=== PATIENT | female | born 1950 | race Caucasian/White ===

== ENCOUNTER 2016-06-17 08:21 | Day surgery (SDC) | payer MEDICARE ==
[2016-06-08 16:50] LABS: BASOPHILS 0.3 %; BASOPHILS ABSOLUTE 0.02 10/3/uL (0.0-0.16); EOSINOPHILS 0.7 %; EOSINOPHILS ABSOLUTE 0.04 10/3/uL (0.0-0.53); HEMATOCRIT 36.4 % (36.0-48.0); HEMOGLOBIN 12.5 g/dL (12.0-16.0); IMMATURE GRANULOCYTES 0.3 %; IMMATURE GRANULOCYTES ABSOLUTE 0.02 10/3/uL (0.0-0.11); LYMPHOCYTES 11.9 %; MANUAL DIFF NO %; MEAN CORPUS HGB CONC 34.3 g/dL (32.0-36.0); MEAN CORPUSCULAR HEMOGLOB 31.8 pg (26.0-34.0); MEAN CORPUSCULAR VOLUME 92.6 fL (80-100); MEAN PLATELET VOLUME 9.5 fL (9.2-13.0); MONOCYTES 13.6 %; NEUTROPHILS 73.2 %; NEUTROPHILS ABSOLUTE 4.32 10/3/uL (2.02-8.40); PLATELET COUNT 212 10/3/uL (150-400); RBC DISTRIBUTION WIDTH 13.6 % (12.0-16.0); RED CELL COUNT 3.93 10/6/uL (4.0-5.6); WHITE BLOOD CELLS 5.9 10/3/uL (4.5-10.5)
[2016-06-08 17:54] LABS: A/G RATIO 1.5 (0.7-1.9); ALBUMIN 3.8 G/DL (3.5-5.0); BUN (BLOOD UREA NITROGEN) 13 MG/DL (6-23); CALCIUM, SERUM 8.1 MG/DL (8.5-10.4); CHLORIDE, SERUM 99 MMOL/L (96-112); CO2 (CARBON DIOXIDE) 29 MMOL/L (24-34); GFR AFRICAN AMERICAN 60 ML/MIN (>=60); GFR NON AFRICAN AMERICAN 52 ML/MIN (>=60); GLOBULIN 2.6 G/DL (2.5-4.1); GLUCOSE, SERUM 102 MG/DL (60-99); POTASSIUM, SERUM 4.2 MMOL/L (3.5-5.3); SGOT(AST) 18 U/L (5-40); SGPT(ALT) 30 U/L (5-65); SODIUM, SERUM 137 MMOL/L (135-148); TOTAL BILIRUBIN 0.3 MG/DL (0-1.2); TOTAL PROTEIN 6.4 G/DL (6.0-8.5)
[2016-06-08 17:56] LABS: ALKALINE PHOSPHATASE 119 U/L (45-117)
--- NOTE | ~2016-06-17 | PREOPHP ---
PreOp History and Physical [address] [place]. [address] NAME: BRIAN ALEMAN : 46 STATUS : PRE [facility] [place] PAT#: [id number] AGE: 66 ADM/REG DATE : MR#: [id number] REPORT SERV DATE: 06/16/16 DICTATED BY: YULISSA PAINTING III DATE: 06/02/16 REPORT STATUS : Draft TRANSCRIBED BY: MODL DATE: 06/02/16 HISTORY OF PRESENT ILLNESS: This 66-year-old female comes to the operating room for subclavian vein Port-A-Cath removal. The patient has a history of stage IV follicular lymphoma. She is status post treatment and is considered to be in remission. She comes now for removal of Port-A-Cath at her request and her medical oncologist's request. PAST MEDICAL HISTORY: 1. History of stage IV follicular lymphoma, now in remission after chemotherapy. 2. Arthritis. 3. Depression. 4. Supraventricular tachycardia. 5. Hypercholesterolemia. 6. Migraine headaches. 7. Spinal disease. ALLERGIES: CEFTIN, BIAXIN, AND FELDENE. MEDICATIONS: Coreg; Synthroid; Nexium; Lexapro; Lipitor; and vitamins. SOCIAL HISTORY: The patient is . She lives in [place], [place]. She is not employed. She has no history of tobacco use. She has occasional history of alcohol use. FAMILY HISTORY: Positive for heart disease, stroke, leukemia, and prostate cancer. REVIEW OF SYSTEMS: The patient complains of reflux, indigestion, and fatigue. PHYSICAL EXAMINATION: OBJECTIVE PHYSICAL EXAM: GENERAL: This is a female, in no acute distress. She is alert and oriented x3. HEENT: Unremarkable. NEUROLOGIC: Cranial nerves 2 through 12 were normal. LUNGS: Clear. CARDIAC: Normal. ASSESSMENT: 1. A 66-year-old female with history of stage IV follicular lymphoma, in remission after chemotherapy, with need for removal of subclavian vein Port-A-Cath. 2. Arthritis. 3. Depression. 4. Supraventricular tachycardia. 5. Hypercholesterolemia. 6. Migraine headaches. PreOp History and Physical [address] [address] NAME: BRIAN ALEMAN : 46 STATUS : PRE [facility] [place] PAT#: [id number] AGE: 66 ADM/REG DATE : MR#: [id number] REPORT SERV DATE: 06/16/16 DICTATED BY: YULISSA PAINTING III DATE: 06/02/16 REPORT STATUS : Draft TRANSCRIBED BY: FAHEEM DATE: 06/02/16 PLAN: The patient comes to the operating room now for removal of her Port-A-Cath. This procedure, the risks, benefits, and alternatives, including not limited to the risk for bleeding, infection, air embolus, pericardial tamponade, dislodgement of the Port-A-Cath tubing requiring extraction, and unforeseen complications including deep venous thrombosis, pulmonary embolus, myocardial infarction, stroke, pneumonia, and , have been explained to the patient prior to surgery. All her questions have been answered. She understands the risks and agrees to the surgery as planned. WILEY/FAHEEM Yulissa Painting III, M.D. / [id number]
--- NOTE | ~2016-06-17 | OP ---
Record Of Operation [facility] [address] [place]. [address] NAME: BRIAN ALEMAN : 46 STATUS : [facility]#: [id number] AGE: 66 ADM/REG DATE : 06/17/16 MR#: [id number] REPORT SERV DATE: 06/18/16 DICTATED BY: YULISSA THORPE III DATE: 06/18/16 REPORT STATUS : Draft TRANSCRIBED BY: MODL DATE: 06/18/16 DATE OF PROCEDURE: 06/17/2016 PREOPERATIVE DIAGNOSIS: History of malignant lymphoma, with need for removal of right subclavian vein Port-A-Cath. OPERATIVE DIAGNOSIS: History of malignant lymphoma, with need for removal of right subclavian vein Port-A-Cath. PROCEDURE: Removal of right subclavian vein Port-A-Cath. SURGEON: Yulissa Thorpe M.D. ANESTHESIA: General with intubation. COMPLICATIONS: None. ESTIMATED BLOOD LOSS: Less than 5 mL. SPECIMENS: Port-A-Cath for identification. DRAINS: None. LAP AND SPONGE COUNT: Correct x3. BRIEF HISTORY: This 66-year-old female has a previous history of malignant lymphoma. She is status post chemotherapy and is considered to be in remission regarding her malignancy. It was felt that removal of her Port-A-Cath was indicated. This procedure, the risks, benefits and alternatives, including not limited to the risk for bleeding, infection, air embolus, pericardial tamponade, dislodgement of the Port-A-Cath tubing requiring extraction, and unforeseen complications including deep venous thrombosis, pulmonary embolus, myocardial infarction, stroke, pneumonia, and , were fully explained to the patient prior to surgery. Her questions were answered. She understood the risks and agreed to surgery as planned. DESCRIPTION OF PROCEDURE: After being appropriately identified and after discussing the risks of surgery with her again in the preoperative area, the patient was taken to the operating room and placed in the supine position on the operating room table. General anesthesia was administered and she was intubated without difficulty. The upper chest and neck areas were prepped and draped sterilely in the usual fashion. After an appropriate "time-out" per JCAHO standards, a small transverse incision was made directly over the right infraclavicular Port-A-Cath over the previous incision. The incision was continued through the subcutaneous tissue. Hemostasis was controlled with cautery. The capsule around the port was divided and the sutures holding the Port-A-Cath housing in place were divided. The Port-A-Cath housing and tubing were removed. The entire tubing was removed. Pressure was held at the exit site of the tubing from the subcutaneous tissue to prevent air embolus. Record Of Operation [facility] [address] [place]. [address] NAME: BRIAN ALEMAN : 46 STATUS : [facility] PAT#: [id number] AGE: 66 ADM/REG DATE : 06/17/16 MR#: [id number] REPORT SERV DATE: 06/18/16 DICTATED BY: YULISSA THORPE III DATE: 06/18/16 REPORT STATUS : Draft TRANSCRIBED BY: FAHEEM DATE: 06/18/16 This exit site was closed with a 3-0 Vicryl suture. Hemostasis was assured. The subcutaneous tissue was closed with a running 3-0 Vicryl suture. The skin was closed with running subcuticular 4-0 Monocryl stitch. The incision was injected with 0.5% Marcaine. Dressings were applied. Anesthesia was reversed and the patient was taken to the recovery room in stable condition. She tolerated the procedure well. Her family was informed the results of surgery. The patient was discharged when stable and comfortable. Her family was advised that she should keep her wound clean and dry for [address] should not drive for two to three days after surgery or while using narcotics, and that she should resume her usual medications. She was asked to return in two weeks for followup or sooner if any fever, chills, wound drainage, or other problems prior to that time. She was given a prescription for Percocet 7.5 one t.i.d., 12, as needed for pain, which she was advised not to use while driving. WILEY/FAHEEM Yulissa Thorpe III, M.D. / [id number] CC: Easton Zuniga III, BRANDON ALAN
--- NOTE | ~2016-06-17 | PREOPHP ---
PreOp History and Physical [id number] [place]. [address] NAME: BRIAN ALEMAN : 46 STATUS : REG [facility] [place] PAT#: [id number] AGE: 66 ADM/REG DATE : 06/17/16 MR#: [id number] REPORT SERV DATE: 06/17/16 DICTATED BY: YULISSA THORPE III DATE: 06/17/16 REPORT STATUS : Draft TRANSCRIBED BY: FAHEEM DATE: 06/17/16 HISTORY OF PRESENT ILLNESS: This 66-year-old female comes to the operating room for removal of right subclavian Port-A-Cath. The patient has a history of malignant lymphoma. She has status post chemotherapy and considered to be in remission regarding her lymphoma. She comes now for removal of her Port-A-Cath, which is no longer being used. PAST MEDICAL HISTORY: 1. History of stage 4A follicular lymphoma, status post chemotherapy, considered to be in remission. 2. Iron deficiency anemia. 3. Osteoarthritis. 4. Depression. 5. Gastroesophageal reflux disease. ALLERGIES: CEFTIN, FELDENE, AND VIOXX. MEDICATIONS: As per medication list. PHYSICAL EXAMINATION: GENERAL: This is a female, in no acute distress. She is alert and oriented x3. HEENT: Unremarkable. NEUROLOGIC: Cranial nerves 2 through 12 were normal. LUNGS: Clear. CARDIAC: Normal. She has a right infraclavicular subclavian Port-A-Cath in place. ASSESSMENT: 1. A 66-year-old female with history of malignant lymphoma, with need for removal of right subclavian Port-A-Cath which is no longer being used. 2. History of malignant lymphoma. 3. History of depression. 4. History of gastroesophageal reflux disease. PLAN: The patient comes to the operating room now for removal of her subclavian Port-A-Cath. This procedure, the risks, benefits, and alternatives, including not limited to the risk for bleeding, infection, air embolus, pericardial tamponade, dislodgement of the Port-A-Cath tubing requiring extraction, and unforeseen complications including deep venous thrombosis, pulmonary embolus, myocardial infarction, stroke, pneumonia, and , were explained to the patient prior to surgery. All her questions were answered. She understands the risks and agrees to the surgery as planned. WILEY/FAHEEM Yulissa Thorpe III, M.D. PreOp History and Physical [id number] [facility] [place] [address]. [address] NAME: BRIAN ALEMAN : 46 STATUS : REG [facility] [place] PAT#: [id number] AGE: 66 ADM/REG DATE : 06/17/16 MR#: [id number] REPORT SERV DATE: 06/17/16 DICTATED BY: YULISSA THORPE III DATE: 06/17/16 REPORT STATUS : Draft TRANSCRIBED BY: FAHEEM DATE: 06/17/16 / [id number] CC: Easton Zuniga III, Brandon Alan
[~2016-06-17 08:21] MED LIST: ALEVE220 MG PO; ASTELIN NAS; ATV.5 PO; B121000P IM; CLARIT10 PO; COREG3 PO; CYMBALTA30 PO; FIORICET 50-301 EACH PO; FLONASE NAS; LEXAPRO20 PO; LIPITOR40 PO; MAXALT5 MG PO; POTASSIUM GLUCONATE PO; PREV15 PO; SYN.05 PO; VITAMIN B-121000 MC1 SL; VITAMIN D1000 UNI1 PO
== END 2016-06-17 12:02 | disposition home or self-care (01) ==
LOC: SDC 08:21
PROVIDERS: Surgery
PROC: 0JPT0XZ Removal of Tunneled Vascular Access Device from Trunk Subcutaneous Tissue and Fascia, Open Approach (ICD-10-PCS; principal; 2016-06-17 10:00)
DX: Z45.2 Encounter for adjustment and management of vascular access device (principal); Z85.72 Personal history of non-Hodgkin lymphomas; D64.9 Anemia, unspecified; G43.909 Migraine, unspecified, not intractable, without status migrainosus; E11.9 Type 2 diabetes mellitus without complications; Z88.8 Allergy status to other drugs, medicaments and biological substances; I47.1 Supraventricular tachycardia; H91.92 Unspecified hearing loss, left ear; E78.00 Pure hypercholesterolemia, unspecified; M19.90 Unspecified osteoarthritis, unspecified site; M81.0 Age-related osteoporosis without current pathological fracture; F32.9 Major depressive disorder, single episode, unspecified; K21.9 Gastro-esophageal reflux disease without esophagitis; Z90.710 Acquired absence of both cervix and uterus; Z98.1 Arthrodesis status; Z98.890 Other specified postprocedural states
CPT/HCPCS: 71020; 80053; 85025; 88300; 93005; J0690; J2405; J3010